=== PATIENT | female | born 1965 | race Caucasian/White ===

== ENCOUNTER 2017-03-27 10:33 | Emergency (ER) | payer SELFPAY ==
[2017-03-27] MEDS ORDERED: KETOROLAC TROMETHAMINE 30 MG/ML VIAL IM ONE (10:49)
[2017-03-27] MEDS ORDERED: KETOROLAC TROMETHAMINE 30 MG/ML VIAL ONE (10:50)
--- NOTE | 2017-03-27 11:21 | ERNOTE ---
Back Pain ER HPI Date of Service: 03/27/17 Presenting Symptoms: hx chronic back pain Time Seen by Provider: 03/27/17 10:45 Source: patient Exam Limitations: no limitations Immunizations: IMMUNIZATION HX Immunizations Up to Date Yes History of Influenza Vaccine No Hx Pneumococcal Vaccination Yes Allergies/Adverse Reactions: Allergies Sulfa (Sulfonamide Antibiotics) [Sulfa(Sulfonamide Antibiotics)] Allergy (Mild, Verified 03/27/17 10:47) Hives codeine Adverse Reaction (Mild, Verified 03/27/17 10:47) RASH corn [[place]] Adverse Reaction (Mild, Verified 03/27/17 10:47) UPSET STOMACH NSAIDS (Non-Steroidal Anti-Inflamma Adverse Reaction (Mild, Verified 03/27/17 10 :47) ULCER Home Medications: HOME MEDICATIONS Hydrochlorothiazide [Hydrodiuril] 25 mg PO DAILY 03/07/13 [Last Taken Unknown] Levothyroxine Sodium [Synthroid] 88 mcg PO DAILY 03/07/13 [Last Taken Unknown] Venlafaxine HCl [Effexor] 75 mg PO DAILY 03/27/17 [Last Taken Unknown] predniSONE [Prednisone] See Taper PO DAILY #18 tablet 03/27/17 [Last Taken Unknown] Narrative: 52 year old female presenting to the emergency room for left-sided back hip sciatica pain. Patient states her pain starts in her lower back goes around up into the front of her thigh. Patient states that the pain started last night and this morning she took some [id number] Tylenol and has not gotten better. It has gotten worse. Patient states she is currently being seen a transport specialist and has a diagnosis of degenerative disc disease. Patient states she had an MRI 2 weeks ago and is waiting for her follow-up appointment with Dr. marsh. Date (Duration): 03/27/17 Timing: Reports: constant, getting worse Quality/Severity: Reports: mild Location of pain: Reports: lower back, radiating to lf thigh/leg Activities at Onset: Reports: none Recent Injury?: Reports: no Possible Precipitating Factor: Reports: other - took the train from [facility] to [place] last week. Modifying Factors - (Improves): Reports: nothing Modifying Factors - (Worsens): Reports: movement flexion Associated Symptoms: Denies: fever/chills, sweating, constipation/incontinence, problems urinating Review of Systems - Review of Systems Constitutional: Present: See HPI EYE: Present: no symptoms reported ENT: Present: no symptoms reported Respiratory: Present: no symptoms reported Cardiology: Present: no symptoms reported Gastrointestinal/Abdominal: Present: no symptoms reported Genitourinary: Present: no symptoms reported Musculoskeletal: Present: See HPI Skin: Present: no symptoms reported Neurological: Present: no symptoms reported Endocrine: Present: no symptoms reported Hematologic/Lymphatic: Present: no symptoms reported Psych: Present: no symptoms reported All Other Systems: All systems neg except as marked - Patient's Past Medical History Patient History - Medical: Depression Patient History - Cardiac/Respiratory: No pertinent hx Patient History - Cancer: No Hx of Cancer Patient History - Surgical Procedures: Patient History - Other: None LMP (females 10-50): long time ago "a year ago." - Family History Mother Family History - Medical: History Unknown Father Family History - Medical: History Unknown - Social History Living Situations: home Psych History: Hx of Depression Smoking Status: Current every day smoker Alcohol Use: none Drug Use: none - Immunizations Immunizations Up to Date: Yes Hx Pneumococcal Vaccination: Yes History of Influenza Vaccine: No Physical Exam - Physical Exam Narrative: I was able to elicit pain with a straight leg raise on her left side. left lower back is tender below belt line General Appearance: Present: wd/wn, alert, no apparent distress Eye Exam: Normal inspection: bilateral Ears, Nose, Throat: Present: normal ENT inspection Neck: Present: normal inspection, nontender Respiratory: Present: no respiratory distress, normal breath sounds, no accessory muscle use, lungs clear Cardiovascular/Chest: Present: regular rate, rhythm, no murmur Peripheral Pulses: N=norm/S=strong/W=weak/B=bound/A=absent: Radial (R): Normal, Radial (L): Normal, Dorsalis-pedis (R): Normal, Dorsalis-pedis (L): Normal Gastrointestinal/Abdominal: Present: normal bowel sounds, nontender, soft Back Exam: Present: decreased range of motion - left leg Extremity Exam: Present: normal except - - pain with straight leg raist of left leg. , decreased range of motion Neurological Exam: Present: alert, oriented, normal mood/affect, no motor/ sensory deficits Skin Exam: Present: normal color, warm/dry Lymphatic Exam: Present: no adenopathy ED Progress - Vital Signs Patient's Vital Signs:: I have reviewed the patient's vital signs. Vital Signs: Vital Signs 03/27/17 10:39 Temperature 35.9 C L Pulse Rate 65 Respiratory 16 Rate Blood Pressure 130/98 O2 Sat by Pulse 99 Oximetry - Progress/Reassessment Chief Complaint: Back Pain Progress:: Improved Plan - Plan Plan: patient is to follow up with Dr Mack on tuesday Departure Clinical Impression: Sciatic leg pain - Departure Disposition: Home Follow Up Needed Condition: Stable Instructions: Sciatica, [id number] Additional Instructions: Continue any previous home medications as directed. Return to emergency room if symptoms persist, or if you are unable to control your pain with over-the- counter pain medications. Follow-up with Dr. Marsh on Tuesday. Referrals: Gemini Felix MD [Primary Care Provider] - Prescriptions: predniSONE [Prednisone] See Taper PO DAILY #18 tablet
--- OUTSIDE RECORDS SUMMARY | 2017-03-27 11:40 | XMS REPORT | Continuity of Care Document ---
:1965 Author Organization [facility] ([facility]) Address [address] [place] [address] Phone [phone] Care Team Providers Name Role Phone Gemini Felix Primary Care Provider [phone] Source Comments This disclosure is being made pursuant to the Care Everywhere program, applicable federal and state laws, and may not contain all informaitonavailable regarding this patient.[facility] ([facility]) Active Allergies and Adverse Reactions Not on File Current Medications Not on file Active Problems Not on file Social History Tobacco Use Types Packs/Day Years Used Date Never Assessed Plan of Care Health Maintenance Due Date Last Done Comments HCV Screening 1965 Hepatitis B Vaccine (1 of 3 - Primary Series) 1965 Tdap Vaccine 1974 Lipid Disorder Screening 1981 MMR Vaccine 1981 Td Vaccine 1981 Cervical Cancer Screening 1993 Colonoscopy 02/05/2013 Mammogram 09/12/2016 09/12/2015 Influenza Vaccine: Seasonal (Season Ended) 2017 Results from Last 3 Months Not on file
[2017-03-27 11:47] VITALS: BP 134/84
== END 2017-03-27 11:52 | disposition home or self-care (01) ==
LOC: ER 10:33
DX: M54.32 Sciatica, left side (principal); Z72.0 Tobacco use; F32.89 Other specified depressive episodes

== ENCOUNTER 2017-07-22 06:00 | Emergency (ER) | payer MEDICAID ==
[2017-07-22 06:00] VITALS: BP 134/84
== END 2017-07-22 06:05 | disposition left against medical advice (07) ==
LOC: ER 06:00
DX: Z53.21 Procedure and treatment not carried out due to patient leaving prior to being seen by health care provider (principal)

== ENCOUNTER 2017-07-22 07:39 | Emergency (ER) | payer MEDICAID ==
--- NOTE | 2017-07-22 09:06 | ERNOTE ---
Psychological HPI - General Chief Complaint: Psychiatric Problem Source: Reports: patient - Immun/Allergies/Home Medications Allergies/Adverse Reactions: Allergies Sulfa (Sulfonamide Antibiotics) [Sulfa(Sulfonamide Antibiotics)] Allergy (Mild, Verified 07/22/17 08:03) Hives codeine Adverse Reaction (Mild, Verified 07/22/17 08:03) RASH corn [[place]] Adverse Reaction (Mild, Verified 07/22/17 08:03) UPSET STOMACH NSAIDS (Non-Steroidal Anti-Inflamma Adverse Reaction (Mild, Verified 07/22/17 08 :03) ULCER Home Medications: HOME MEDICATIONS Hydrochlorothiazide [Hydrodiuril] 25 mg PO DAILY 03/07/13 [Last Taken Unknown] Levothyroxine Sodium [Synthroid] 88 mcg PO DAILY 03/07/13 [Last Taken Unknown] Venlafaxine HCl [Effexor] 75 mg PO DAILY 03/27/17 [Last Taken Unknown] Aspirin 325 mg PO DAILY 07/22/17 [Last Taken Unknown] Ranitidine HCl [Zantac] 300 mg PO HS 07/22/17 [Last Taken Unknown] Sucralfate [Carafate] 1 gm PO BID 07/22/17 [Last Taken Unknown] clonazePAM [Klonopin] 0.5 mg PO DAILY PRN #10 tablet 07/22/17 [Last Taken Unknown] - History of Present Illness Narrative: Patient has a long standing history of bipolar and PTSD. She used to see Dr Cassidy before moving to [place] for a while. Since she moved back about a year ago she has been trying to get an appointment with Dr Kaur who has seen her daughters in the past. She has the paperwork filled out for his offie but has not submitted it yet. Her has been in senior living for the last eight month, she has been homeless for a while and no place to go. She was admitted twice for suicidal ideation in the past about 10 years ago, has 'scratched' her wrist once, no other suicide attempts. She has thoughts of swimming out into the river and just letting go. When asked how likely she is to go through with that thought, she states 'very low'. She has had a hard time sleeping since running out of her clonazepam and would like a refill. Time Seen by Provider: 07/22/17 08:38 Review of Systems - Review of Systems Constitutional: Absent: recent illness, fever EYE: Absent: vision changes ENT: Absent: nose congestion, sore throat Respiratory: Absent: shortness of breath Cardiology: Absent: chest pain Gastrointestinal/Abdominal: Absent: nausea, vomiting, abdominal pain Genitourinary: Present: no symptoms reported Skin: Absent: rash Neurological: Absent: headache Psych: Present: See HPI - Patient's Past Medical History Patient History - Medical: Bipolar, Depression Patient History - Cardiac/Respiratory: Hyperlipidemia Patient History - Cancer: No Hx of Cancer Patient History - Surgical Procedures: Patient History - Other: None - Family History Mother Family History - Medical: History Unknown Father Family History - Medical: History Unknown - Social History Living Situations: home Psych History: Hx of Depression, Hx of Bipolar Disorder Alcohol Use: none Drug Use: none - Immunizations Immunizations Up to Date: Yes Hx Pneumococcal Vaccination: Yes History of Influenza Vaccine: No Psychological Exam - Exam General Appearance: Present: wd/wn, alert, no apparent distress, other - clean, well kept Head Exam: Present: normal inspection, no evidence of injury Neurological: Present: alert, oriented x 3, depressed affect Thoughts/Hallucinations: Present: normal thought pattern, no apparent hallucination Behavior/Eye Contact/Speech: Present: cooperative, good eye contact, normal speech Respiratory: Present: no respiratory distress, normal breath sounds, no accessory muscle use, lungs clear Cardiovascular/Chest: Present: regular rate, rhythm, no murmur Extremity Exam: Present: no edema Skin Exam: Present: normal color, warm/dry, no cyanosis ED Progress - Vital Signs Patient's Vital Signs:: I have reviewed the patient's vital signs. Vital Signs: Vital Signs 07/22/17 07:56 Temperature 36.5 C Pulse Rate 66 Respiratory 12 Rate Blood Pressure 130/75 O2 Sat by Pulse 99 Oximetry - Progress/Reassessment Chief Complaint: Psychiatric Problem Progress Note-Subjective: 07/22/17 10:04 patient sleeping, easily aroused, discussed plan, appointment at psychiatry office pending Departure Clinical Impression: Depression Qualifiers: Depression Type: unspecified Qualified Code(s): F32.9 - Major depressive disorder, single episode, unspecified - Departure Disposition: Home self-care Condition: Good Instructions: Bipolar Disorder Referrals: Gemini Felix MD [Primary Care Provider] - Prescriptions: clonazePAM [Klonopin] 0.5 mg PO DAILY PRN #10 tablet PRN Reason: Insomnia
[2017-07-22 09:53] VITALS: BP 132/76
== END 2017-07-22 10:15 | disposition home or self-care (01) ==
LOC: ER 07:39
DX: F32.9 Major depressive disorder, single episode, unspecified (principal)

== ENCOUNTER 2017-07-24 15:46 | Emergency (ER) | payer MEDICAID ==
[2017-07-24 16:33] LABS: Hematocrit 40.4 % (37.0-47.0); Hemoglobin 13.6 gm/dL (12.5-16.0); Mean Corpuscular Hgb Conc 33.7 g/dl (32-36); Mean Platelet Volume 9.8 fl (6.0-9.5); Neutrophil # 3.2 K/mm3 (1.3-6.0); Neutrophil % 46.7 % (42-75.0); Platelet Count 446 K/mm3 (150-450); Red Blood Count 4.39 M/mm3 (4.2-5.4); Red Cell Distribution Width 13.8 % (11.5-14.0); White Blood Count 6.9 K/mm3 (4.0-10.5)
[2017-07-24 16:57] LABS: Cocaine Ur Negative (NEGATIVE); Urine Barbiturate Negative (NEGATIVE); Urine Benzodiazepines Negative (NEGATIVE); Urine Opiates Positive (NEGATIVE); Urine PCP Negative (NEGATIVE); Urine THC Negative (NEGATIVE)
[2017-07-24 16:58] LABS: Urine Bilirubin Negative (NEGATIVE); Urine Color Yellow
[2017-07-24 16:59] LABS: Urine Blood Negative /ul (NEGATIVE); Urine Ketone Negative (NEGATIVE); Urine Nitrite Negative (NEGATIVE); Urine Protein Negative (NEGATIVE); Urine Specific Gravity 1.025 SP.GR. (1.005-1.010); Urine Urobilinogen Normal (NORMAL); Urine pH 5.5 pH (5.0-7.0)
[2017-07-24 17:00] LABS: Urine RBC None Seen /hpf (0-5)
[2017-07-24 17:01] LABS: Urine Appearance Slightly Cloudy; Urine Bacteria 1+
[2017-07-24 17:08] LABS: ALT 19 U/L (19-67); AST 11 U/L (0-48); Albumin * 3.5 gm/dl (3.4-5.0); Alkaline Phosphatase * 94 U/L (50-170); Bilirubin, Total 0.4 mg/dL (0.0-1.1); Blood Urea Nitrogen 23 mg/dL (3-23); Ca. Corrected For Albumin 9.2 mg/dL (8.4-10.2); Calcium * 9.1 mg/dL (7.9-10.9); Carbon Dioxide 25.7 mmol/L (24-32.6); Chloride 106 mmol/L (97-106); Glucose * 91 mg/dL (70-110); Potassium 3.7 mmol/L (3.4-4.6); Salicylate 9.7 mg/dL (2.8-20.0); Sodium 142 mmol/L (132-142); TSH * 1.459 uIU/mL (0.358-3.74); Total Protein 7.4 gm/dL (6.2-8.2)
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
[2017-07-25 04:54] VITALS: BP 123/78
== END 2017-07-25 02:09 | disposition short-term general hospital (02) ==
LOC: ER 15:46
DX: R45.851 Suicidal ideations (principal); F17.200 Nicotine dependence, unspecified, uncomplicated; F31.9 Bipolar disorder, unspecified; R53.81 Other malaise; Z79.899 Other long term (current) drug therapy
CPT/HCPCS: 36415; 80053; 80307; 81001; 84443; 85025; 87086; 99283; G0480; G0481